=== PATIENT | female | born 1990 | race Caucasian/White ===

== ENCOUNTER → 2018-04-30 17:50 | Outpatient (REF) | payer MEDICAID, SELFPAY ==
[2018-05-02 15:20] LABS: Lyme Ab w Rflx to Lyme Confirm Negative
== END ==
LOC: NCHCN 17:50
PROVIDERS: PCP Family Medicine; Visit Provider Family Medicine
DX: M25.50 Pain in unspecified joint (principal)
CPT/HCPCS: 86618